=== PATIENT | male | born 1955 | race Caucasian/White ===

== ENCOUNTER 2019-02-07 17:09 | Emergency (ER) | payer MEDICAID ==
[~2019-02-07] VITALS: Ht 175.3 cm; Wt 118.2 kg
[~2019-02-07 17:09] MED LIST: AMOX1TAB64 PO; ATOR40TA78 PO; HYDR-3653 PO; LISI1TAB7 PO; METO25TA35 PO; MULT-516 PO; VERA120C4 PO; ZINC PO
[2019-02-07] MEDS ORDERED: COLCHICINE 0.6 MG TABLET ONE (18:27)
[2019-02-07] MEDS ORDERED: INDOMETHACIN 50 MG CAPSULE ONE (18:27)
[2019-02-07] MEDS ORDERED: INDOMETHACIN 50 MG CAPSULE PO ONE (18:30)
[2019-02-07] MEDS ORDERED: COLCHICINE 0.6 MG TABLET PO ONE (18:30)
[2019-02-07] MEDS ORDERED: HYDROcodone/APAP 10/325 MG TABLET PO ONE (19:30)
[2019-02-07] MEDS ORDERED: HYDROcodone/APAP 10/325 MG TABLET ONE (19:33)
--- NOTE | 2019-02-07 19:39 | NUR ---
pt medicated as ordered, provided DC paperwork and verbalized understanding, family assisted out in wheelchair.
[2019-02-07 19:40] VITALS: BP 137/93
== END 2019-02-07 19:45 | disposition home or self-care (01) ==
LOC: ED 19:30
DX: M19.072 Primary osteoarthritis, left ankle and foot (principal); M19.071 Primary osteoarthritis, right ankle and foot; E78.00 Pure hypercholesterolemia, unspecified; I10 Essential (primary) hypertension
CPT/HCPCS: 36415; 84550; 99284